=== PATIENT | female | born 1980 | race Caucasian/White ===

== ENCOUNTER 2016-11-02 04:57 | Inpatient (IN) | payer OTHER ==
[2016-11-02] MEDS ORDERED: Scopolamine 1.5 MG Transdermal Patch TOP SCH (05:30)
[2016-11-02] MEDS ORDERED: Acetaminophen 500 MG Tab PO ONE (06:00)
[2016-11-02] MEDS ORDERED: Celecoxib 200 MG Cap PO ONE (06:00)
[2016-11-02] MEDS ORDERED: Gabapentin 300 MG Cap PO ONE (06:00)
[2016-11-02] MEDS ORDERED: Dextrose 5%-Lactated Ringers 1,000 ML IV SCH (06:30)
[2016-11-02] MEDS ORDERED: cefOXitin 2 GM Vial ONE (06:38)
[2016-11-02] MEDS ORDERED: Lactated Ringers 1,000 ML ONE (07:14)
[2016-11-02] MEDS ORDERED: cefOXitin 2 GM in Sodium Chloride 0.9% 50 ML IV ONE (07:15)
[2016-11-02] MEDS ORDERED: Rocuronium 50 MG/5 ML Vial ONE ×2 (07:21→08:32)
[2016-11-02] MEDS ORDERED: Succinylcholine 200 MG/10 ML MDV ONE (07:21)
[2016-11-02] MEDS ORDERED: Dexamethasone 4 MG/ML SDV ONE (07:21)
[2016-11-02] MEDS ORDERED: Neostigmine Methylsulfate 1 MG/ML 5 ML Syringe ONE (07:21)
[2016-11-02] MEDS ORDERED: Ondansetron 4 MG/2 ML SDV ONE (07:21)
[2016-11-02] MEDS ORDERED: Propofol 200 MG/20 ML SDV ONE (07:21)
[2016-11-02] MEDS ORDERED: Glycopyrrolate 0.2 MG/ML 5 ML MDV ONE (07:21)
[2016-11-02] MEDS: Lidocaine 0.4%/D5W 2 GM/500 ML BAG IV SCH (07:55)
[2016-11-02] MEDS ORDERED: Ropivacaine 60 ML, Dexamethasone 8 MG, EPINEPHrine 0.4 MG, Sodium Chloride 0.9% 17.6 ML NERVRT SCH ×4 (08:00)
[2016-11-02] MEDS ORDERED: Ketamine 500 MG/5 ML MDV IV ONE (08:00)
[2016-11-02] MEDS ORDERED: Lidocaine 2% 100 MG/5 ML Syringe IVPUSH ONE (08:00)
[2016-11-02] MEDS ORDERED: Labetalol 20 MG/4 ML Syringe ONE (08:50)
[2016-11-02] MEDS ORDERED: hydrOXYzine HCl 100 MG/2 ML SDV IM ONE (10:06)
[2016-11-02] MEDS: fentaNYL 100 MCG/2 ML SDV IVPUSH ONE ×2 (10:15→12:51)
[2016-11-02] MEDS ORDERED: Labetalol 20 MG/4 ML Syringe IVPUSH ONE (10:45)
[2016-11-02] MEDS ORDERED: HYDROmorphone 1 MG/ML Syringe IVPUSH PRN (11:43)
[2016-11-02] MEDS: HYDROmorphone 1 MG/ML Syringe IVPUSH PRN ×4 (11:54→23:36)
[2016-11-02] MEDS ORDERED: SCOPOLAMINE PATCH ASK TOP SCH (12:00)
[2016-11-02] MEDS ORDERED: Metoclopramide 10 MG/2 ML SDV IVPUSH PRN (12:00)
[2016-11-02] MEDS ORDERED: diphenhydrAMINE 50 MG/ML SDV IVPUSH PRN (12:00)
[2016-11-02] MEDS ORDERED: hydrOXYzine HCl 100 MG/2 ML SDV IM PRN (12:00)
[2016-11-02] MEDS: Labetalol 20 MG/4 ML Syringe IV PRN ×3 (12:27→15:51)
[2016-11-02] MEDS: cefOXitin 2 GM in Sodium Chloride 0.9% 50 ML IV SCH ×2 (12:50→18:29)
[2016-11-02] MEDS: Dextrose 5%-Lactated Ringers 1,000 ML IV SCH (12:50)
[2016-11-02] MEDS ORDERED: Gabapentin 250 MG/5 ML Solution ML 470 ML Bottle PO SCH (14:00)
[2016-11-02] MEDS: Acetaminophen Soln 650 MG/20.3 ML UD Cup PO SCH ×2 (15:42→21:32)
[2016-11-02] MEDS: Pantoprazole 40 MG Vial IVPUSH SCH (15:42)
[2016-11-02] MEDS: MVI, Adult with Vitamin K 10 ML, Thiamine 200 MG, Chromium/Copper/Mang/Selen/Zn 1 ML in... IV SCH ×4 (17:41)
[2016-11-02] MEDS: Heparin Sodium 5,000 Units/ML Vial SUBCUT SCH (17:48)
[2016-11-02] MEDS: Gabapentin 300 MG Cap PO SCH (21:32)
[2016-11-03] MEDS: Dextrose 5%-Lactated Ringers 1,000 ML IV SCH ×2 (00:13→05:42)
[2016-11-03] MEDS: Lidocaine 0.4%/D5W 2 GM/500 ML BAG IV SCH (00:48)
[2016-11-03] MEDS: cefOXitin 2 GM in Sodium Chloride 0.9% 50 ML IV SCH (01:05)
[2016-11-03] MEDS ORDERED: Iohexol 647 MG/ML 50 ML SDV PO STA (03:46)
[2016-11-03] MEDS: Acetaminophen Soln 650 MG/20.3 ML UD Cup PO SCH ×4 (04:43→21:42)
[2016-11-03] MEDS: Labetalol 20 MG/4 ML Syringe IV PRN (05:36)
[2016-11-03] MEDS: Heparin Sodium 5,000 Units/ML Vial SUBCUT SCH ×2 (05:41→17:21)
[2016-11-03] MEDS: Gabapentin 300 MG Cap PO SCH ×4 (05:42→21:42)
[2016-11-03] MEDS: HYDROmorphone 1 MG/ML Syringe IVPUSH PRN ×3 (07:34→19:01)
[2016-11-03] MEDS: Ondansetron 4 MG/2 ML SDV IVPUSH PRN ×2 (07:34→14:08)
[2016-11-03] MEDS ORDERED: Dextrose 5%-Lactated Ringers 1,000 ML IV SCH (07:45)
[2016-11-03] MEDS: Celecoxib 200 MG Cap PO SCH (07:52)
[2016-11-03] MEDS: SCOPOLAMINE PATCH CHECK TOP SCH (08:24)
--- NOTE | 2016-11-03 08:34 | CR ---
UGI wo KUB HISTORY: eval duodenal switch FINDINGS: After administration of oral contrast, upright views were obtained. Post operative changes gastric bypass. Surgical drain in place. No evidence for leak. Contrast passes freely into proximal small bowel loops. IMPRESSION: No evidence for leak or obstruction.
[2016-11-03] MEDS ORDERED: Celecoxib 200 MG Cap PO SCH (09:00)
--- NOTE | 2016-11-03 11:03 | PN ---
DATE OF SERVICE: 11/03/2016 SUBJECTIVE: Asuncion is postoperative day 1. She has had difficulty with elevated blood pressure. She has received labetalol three times within the first 24 hours of surgery. She states her pain is controlled. She has been up ambulating, sitting in the chair. OBJECTIVE: GENERAL: Asuncion is a 36-year-old female. VITAL SIGNS: TPR is 97.5, 64, 16, and blood pressure 166/90. HEENT: Negative. NECK: Supple. HEART: Regular rate and rhythm. LUNGS: Clear. ABDOMEN: Dressings dry and intact. Abdominal binder is on and JARETT put out 70 mL of a light pink serous drainage. ASSESSMENT: Laparoscopic duodenal switch liver biopsy and repair of diaphragmatic hernia for morbid obesity, hepatomegaly, and diaphragmatic hernia on 11/02/2016. PLAN: 1. Step two with no cereal gastric bypass diet. 2. Discontinue telemetry and continuous pulse oximetry, and lidocaine is in. 3. Remove dressing, may shower. 4. Decrease IV of D5 LR to 100 mL per hour. 5. Good pulmonary toilet encouraged. 6. We will evaluate p.r.n. or in a.m. Radha Tavarez PA-C /[id number]
[2016-11-03] MEDS: Pantoprazole 40 MG Vial IVPUSH SCH (15:51)
[2016-11-03] MEDS: MVI, Adult with Vitamin K 10 ML, Thiamine 200 MG, Chromium/Copper/Mang/Selen/Zn 1 ML in... IV SCH ×4 (17:21)
[2016-11-04] MEDS: HYDROmorphone 1 MG/ML Syringe IVPUSH PRN ×2 (01:16→04:28)
[2016-11-04] MEDS: Acetaminophen Soln 650 MG/20.3 ML UD Cup PO SCH ×2 (04:28→09:01)
[2016-11-04] MEDS: Gabapentin 300 MG Cap PO SCH ×2 (06:28→09:01)
[2016-11-04] MEDS: Heparin Sodium 5,000 Units/ML Vial SUBCUT SCH (06:29)
[2016-11-04 07:51] VITALS: BP 174/92
[2016-11-04] MEDS: Celecoxib 200 MG Cap PO SCH (08:57)
[2016-11-04] MEDS: SCOPOLAMINE PATCH CHECK TOP SCH (08:57)
[2016-11-04] MEDS ORDERED: Cyanocobalamin (Vitamin B12) 1,000 MCG/ML SDV IM ONE (09:00)
[2016-11-04] MEDS ORDERED: Magnesium Hydroxide 400 MG/5 ML Susp 30 ML Cup PO ONE (10:30)
--- NOTE | 2016-11-06 08:33 | DISCH ---
FINAL DIAGNOSES: 1. Morbid obesity. 2. History of hypertension. 3. History of cervical dysplasia. 4. History of polycystic ovaries. PROCEDURES: Done on 11/02/2016, laparoscopic duodenal switch with liver biopsy and repair of paraesophageal diaphragmatic hernia. HOSPITAL COURSE: This is a 36-year-old female presenting with longstanding morbid obesity and increasingly significant comorbidities. After preoperative evaluation and discussion, she wished to proceed with the duodenal switch procedure. This was done on the date of admission without instant she had a liver biopsy and repair of the paraesophageal diaphragmatic hernia. Postoperatively, she has had no significant problems. She is complaining of some discomfort on the left shoulder which is requiring a little bit in the way of Dilaudid for control. Otherwise, she should be continuing with the Tylenol and Celebrex following discharge. DISCHARGE MEDICATIONS: Include holding the supplements and vitamins until after the first appointment. She should continue Celebrex 200 mg daily and Tylenol 650 p.o. q.i.d. x5 days and q.i.d. p.r.n. and Dilaudid 2 mg to 4 mg p.o. q.6 hours p.r.n. pain #20, and she has been instructed with the scopolamine patch in 48 hours. Follow up with Radha Tavarez at [facility] on 11/10/2016. She is instructed to stay on a liquid diet for one month postoperatively.
--- NOTE | 2016-11-07 15:27 | OR ---
DATE OF PROCEDURE: 11/02/2016 PREOPERATIVE DIAGNOSIS: Morbid obesity. POSTOPERATIVE DIAGNOSES: 1. Morbid obesity. 2. Marked hepatomegaly. 3. Paraesophageal diaphragmatic hernia. PROCEDURES: 1. Laparoscopic duodenal switch (74782). 2. Clifford-Cut needle liver biopsy (61993). 3. Repair of paraesophageal diaphragmatic hernia (92967). ANESTHESIA: General. [place] STUDIES PROFESSOR: Radha Tavarez PA-C. INDICATIONS FOR PROCEDURE: A 36-year-old presenting with longstanding morbid obesity and increasingly significant comorbidities. After preoperative evaluation and discussion, she wished to proceed with the duodenal switch procedure. Potential risks of the procedure including bleeding, infection, leaks from the various GI tract closures, possible bowel obstruction overtime, as well as possibility of cardiopulmonary, septic, or hemorrhagic complications leading to were discussed, and the patient wishes to proceed. DETAILS OF PROCEDURE: The patient was taken to the operating room and placed in a supine position. After general endotracheal anesthesia was induced, she was converted to a lithotomy position and the abdomen was prepped and draped. Bilateral subcostal transversus abdominis plane blocks were then placed using the standard solution these were placed under continuous ultrasound guidance. A 20 cm inferior and 5 cm left of xiphoid process, transverse incision was made in the peritoneal cavity, entered under direct vision with an Optiview trocar, inflated to 15 mmHg pressure with CO2. Laparoscope was then reinserted. No underlying trocar insertion site injuries were seen. Following this, 6 additional trocars were placed across the upper mid abdomen and general exploration was undertaken. The patient was noted to have marked hepatomegaly with liver volume being roughly 2 to 3 times normal and grossly fatty infiltrated. Clifford-Cut needle biopsies were obtained from the left lobe of the liver. Minimal bleeding from the biopsy sites was controlled with electrocautery. At this point, the sleeve gastrectomy phase of the procedure was initiated. The omentum along the mid greater curvature was then divided with Harmonic scalpel. This dissection continued upward along the greater curvature through the short gastrics including the highest and posterior short gastric vessels as one dissected up towards a gastroesophageal junction. The patient had a paraesophageal diaphragmatic hernia with prolapse of some perigastric fat and tip of the fundus of the stomach in the plane anterior to the course of esophagus. This was reduced and the repair of the diaphragmatic hernia was accomplished. Two sutures were placed posteriorly in the curve with these being 0 Ethibond sutures reinforced with PTFE pledgets and one additional stitch was placed anteriorly. The dissection was then continued distally dividing the omentum away from the greater curvature in the direction of the antrum and pylorus. This was continued to a point roughly 5 cm distal to the pyloric sphincter on the duodenum. The duodenum was then encircled at that level and divided with 2 firings of the RAE holly load. The vascularity was confirmed within the duodenal division lines. Attention was now taken to the small bowel segment of the procedure. The ileocecal valve was identified and the small bowel was then traced out 300 cm distal to that point. This then came up nicely to the level of the divided duodenum. Two sutures were then placed, one between the side of the small bowel at that point to the superior aspect of the divided duodenum and second one to the inferior aspect of the duodenum. These with 0 Vicryl sutures. One additional stitch was then displaced slightly inferior to the second stitch to act as a point of fraction as a small enterotomy was made in the duodenum and adjacent to jejunum and a RAE holly load was then placed into the lumen of the bowel. A 3 cm firings of the RAE stapler was then accomplished and at that point, 3 sutures were then placed between the duodenum and jejunum, one at the superior most aspect of the opening, one in the middle, and one in the inferior most aspect of the opening. This allowed anterior traction of that common opening and this was then closed with a RAE purple load. The lateral staple line was then reinforced with some 3-0 Vicryl seromuscular stitch. For completion of the duodenal switch, we would then divide the small bowel just proximal to about the outline of the anastomosis between the bowel at that level and the small bowel 100 cm proximal to the ileocecal valve. The mesenteric at this point appeared to be unfortunately very limited in terms of mobility and the decision was made to forego that final anastomosis and performed a staged procedure should that be necessary depending on the patient's clinical course. At this point a fibrin sealant was placed anterior and posterior to the duodenoileostomy along with the proximal aspect of the sleeve gastrectomy staple line. The sleeve gastrectomy had previously been completed by means of a staple line beginning at 4 cm proximal to the pylorus continued underneath the incisura angularis and then over a 40- Azerbaijani chest tube adjacent to the lesser curvature of the stomach with combination of black and purple RAE loads. The proximal end of that staple line was reinforced with fibrin sealant and a leak test was accomplished with injection of air into the chest tube descending the sleeve gastrectomy as well as the duodenoileostomy. It was seen passing through the duodenoileostomy indicating its patency. No leaks were identified. At this point, no further problems were noted. The gastric specimen was delivered through the left lateral trocar site. A single Paul-Dupree drain was then placed along the proximal end of the sleeve gastrectomy line and from there into the splenic fossa. The abdomen was irrigated with antibiotic-containing saline solution. No problems were noted and the trocars were removed. The peritoneal cavity deflated, and the incision was closed with some 4-0 Vicryl skin stitch. The patient was taken to the recovery room in satisfactory condition. Physician assistant department manager, Radha Tavarez PA-C, played an essential role in assisting in this case, helping to position the patient, retract structures as needed, as well as suturing and cutting sutures when indicated. Her presence improved the patient's safety and decreased operative time. Jarret Bateman MD /[id number]
== END 2016-11-04 10:40 | disposition home or self-care (01) | DRG 621 ==
LOC: JP.SDS 04:57 → JP.MS 04:57 → EDSTATUS 09:30 → JP.2SS 10:10
PROVIDERS: ADMIT Surgery; ATTEND Surgery
DX: E66.01 Morbid (severe) obesity due to excess calories (principal); Z68.43 Body mass index [BMI] 50.0-59.9, adult; I10 Essential (primary) hypertension; E28.2 Polycystic ovarian syndrome; R46.89 Other symptoms and signs involving appearance and behavior; K44.9 Diaphragmatic hernia without obstruction or gangrene; R16.0 Hepatomegaly, not elsewhere classified; K76.0 Fatty (change of) liver, not elsewhere classified
CPT/HCPCS: 36415; 74240; 74240-26; 82962; 86850; 86900; 86901; 88307; 88313; 94762; A9270-GY; C9113; J0171; J0330; J0694; J1100; J1170; J1644; J2001; J2405; J2704; J2710; J2795; J3010; J3410; J3411; J3420; J7030; J7040; J7042; J7050; J7120; Q9967

== ENCOUNTER 2025-01-22 08:58 | Emergency (ER) | payer OTHER ==
[2025-01-22 10:52] LABS: BASOPHILS PERCENT AUTO 0.2 % (0.1-1.3); EOSINOPHILS PERCENT AUTO 0.0 % (0.0-5.4); IMMATURE GRAN ABSOLUTE AUTO 0.03 K/uL (0.00-0.23); IMMATURE GRAN PERCENT AUTO 0.4 % (0.0-0.7); LYMPHOCYTES ABSOLUTE AUTO 1.69 K/uL (0.8-3.3); LYMPHOCYTES PERCENT AUTO 20.7 % (11.4-47.7); MONOCYTES ABSOLUTE AUTO 0.73 K/uL (0.20-0.90); MONOCYTES PERCENT AUTO 9.0 % (3.3-12.6); NEUTROPHILS ABSOLUTE AUTO 5.68 K/uL (1.0-7.6); NEUTROPHILS PERCENT AUTO 69.7 % (40.0-78.1); PLATELET COUNT,PLT 274 K/uL (130-375); RED BLOOD CELL COUNT 4.18 M/uL (3.77-5.24); WHITE BLOOD CELL COUNT,WBC 8.2 K/uL (3.2-11.0)
[2025-01-22 10:53] LABS: BASOPHILS ABSOLUTE AUTO 0.02 K/uL (0.00-0.10); EOSINOPHILS ABSOLUTE AUTO 0.00 K/uL (0.00-0.40)
[2025-01-22 11:13] LABS: A/G RATIO 1.3 (1.2-2.2); ALANINE AMINOTRANSFERASE,ALT 33 U/L (12-78); ASPARTATE AMNIOTRANSFERASE,AST 27 U/L (15-37); BILIRUBIN TOTAL 0.6 mg/dL (0.2-1.0); BLOOD UREA NITROGEN,BUN 11 mg/dL (7-18); CARBON DIOXIDE,CO2 25 mmol/L (21-32); CHLORIDE,CL 102 mmol/L (100-108); CREATININE 0.7 mg/dL (0.6-1.0); ESTIMATED GFR 110 mL/min (>60); GLUCOSE RANDOM 93 mg/dL (74-106); POTASSIUM,K 4.3 mmol/L (3.6-5.2); PROTEIN TOTAL,TP 7.2 g/dL (6.4-8.2); SODIUM,NA 137 mmol/L (140-148)
[2025-01-22 11:54] LABS: APPEARANCE,URINE SLIGHTLY CLOUDY (CLEAR); GLUCOSE,URINE NEGATIVE (NEGATIVE); OCCULT BLOOD,URINE NEGATIVE (NEGATIVE)
[2025-01-22 12:01] LABS: AMPHETAMINES SCREEN, URINE NEGATIVE (NEGATIVE); METHADONE SCREEN, URINE NEGATIVE (NEGATIVE); METHAMPHETAMINES SCREEN, URINE NEGATIVE (NEGATIVE); OXYCODONE SCREEN,URINE NEGATIVE (NEGATIVE); PROPOXYPHENE SCREEN,URINE NEGATIVE (NEGATIVE); THC SCREEN,URINE 50 NG/ML NEGATIVE (NEGATIVE)
[2025-01-22 12:02] LABS: SQUAMOUS EPITHELIAL CELLS,UR FEW /HPF; UROTHELIAL CELLS,URINE NOT SEEN /HPF
[2025-01-22 12:31] VITALS: BP 121/91; PULSE 82
== END 2025-01-22 12:35 | disposition home or self-care (01) ==
LOC: JP.ED 08:58
DX: K52.9 Noninfective gastroenteritis and colitis, unspecified (principal); I10 Essential (primary) hypertension; E66.9 Obesity, unspecified; Z79.899 Other long term (current) drug therapy
CPT/HCPCS: 36415; 80053; 80305-QW; 81001; 85025; 99284